=== PATIENT | male | born 1955 | race African-American/Black ===

== ENCOUNTER 2018-11-15 05:05 | Emergency (ER) | payer OTHER ==
[~2018-11-15] VITALS: Ht 188 cm; Wt 77.0 kg
[2018-11-15] MEDS ORDERED: ONDANSETRON HCL 4MG/2ML INJ IV STA (05:23)
[2018-11-15] MEDS ORDERED: MORPHINE SULFATE 4 MG/ML CPJ (NOT FOR IM USE) IV STA (05:23)
[2018-11-15] MEDS ORDERED: SODIUM CHLORIDE 0.9% 1,000 ML IV ONE (05:23)
[2018-11-15 05:37] LABS: BASOPHILS % 0.6 % (0.0-2.0); EOSINOPHILS % 0.8 % (0.0-5.0); HEMATOCRIT. 41.5 % (42.0-52.0); HEMOGLOBIN. 13.5 g/dL (14.0-18.0); LYMPHOCYTES % 21.6 % (20.0-50.0); MEAN CORPUSCULAR VOLUME 70.8 fL (80.0-94.0); MEAN PLATELET VOLUME 7.6 fl (7.4-10.4); MONOCYTES % 3.8 % (2.0-8.0); NEUTROPHILS % 73.2 % (40.0-76.0); PLATELET 218 x1000/uL (130-400); RED BLOOD CELL COUNT 5.86 mill/uL (4.7-6.1); RED CELL DISTRIBUTION WIDTH 16.6 % (11.6-14.6)
[2018-11-15 05:44] LABS: CHLORIDE 102 mEq/L (98-107); PROTHROMBIN TIME 10.7 sec (9.6-11.0)
[2018-11-15] MEDS ORDERED: KETOROLAC 15MG/ML VIAL IV ONE (06:30)
[2018-11-15 07:32] VITALS: BP 153/86
[2018-11-15 08:16] LABS: CLARITY URINE CLEAR (CLEAR); COLOR URINE YELLOW (YELLOW); KETONES URINE 1+ (NEGATIVE); LEUKOCYTE ESTERASE URINE NEGATIVE (NEGATIVE); NITRITE URINE NEGATIVE (NEGATIVE); OCCULT BLOOD URINE NEGATIVE (NEGATIVE); PH URINE 7.5 (4.5-8.0); PROTEIN URINE NEGATIVE (NEGATIVE); SPECIFIC GRAVITY URINE 1.016 (1.005-1.030); UROBILINOGEN URINE 0.2 E.U./dL (0.2-1.0)
== END 2018-11-15 07:33 | disposition home or self-care (01) ==
LOC: ER 05:05
DX: R10.32 Left lower quadrant pain (principal); I10 Essential (primary) hypertension; F17.210 Nicotine dependence, cigarettes, uncomplicated; Z71.6 Tobacco abuse counseling
CPT/HCPCS: 36415; 74176; 80053; 81003; 83690; 85025; 85610; 96374; 96375; 99284; 99406; J1885; J2270; J2405; J7030; Z7610

== ENCOUNTER 2019-06-17 08:16 | Emergency (ER) | payer OTHER ==
[~2019-06-17] VITALS: Ht 185.4 cm; Wt 85.0 kg
[2019-06-17] MEDS ORDERED: IPRATROPIUM/ALBUTEROL 0.5-3(2.5)MG/3ML NEB HHN ONE (08:30)
[2019-06-17 10:30] VITALS: BP 110/77
== END 2019-06-17 10:32 | disposition home or self-care (01) ==
LOC: ER 08:16
DX: J44.9 Chronic obstructive pulmonary disease, unspecified (principal); R51 Headache; M79.10 Myalgia, unspecified site; I10 Essential (primary) hypertension; F17.200 Nicotine dependence, unspecified, uncomplicated
CPT/HCPCS: 71045; 87804; 94640; 99284; J7620; Z7610

== ENCOUNTER 2024-03-15 13:33 | Emergency (ER) | payer MEDICARE, OTHER ==
[~2024-03-15] VITALS: Ht 172.7 cm; Wt 58.9 kg
[2024-03-15 13:47] VITALS: O2SAT 97
[2024-03-15 15:35] LABS: BASOPHILS % 0.8 % (0.0-2.0); EOSINOPHILS % 0.6 % (0.0-5.0); HEMATOCRIT. 31.4 % (42.0-52.0); HEMOGLOBIN. 10.5 g/dL (14.0-18.0); LYMPHOCYTES % 11.1 % (20.0-50.0); MEAN CORPUSCULAR HEMOGLOBIN 23.3 pg (28.0-32.0); MEAN CORPUSCULAR HGB CONC 33.4 g/dL (31.0-37.0); MEAN CORPUSCULAR VOLUME 69.9 fL (80.0-94.0); MONOCYTES % 5.3 % (2.0-8.0); NEUTROPHILS % 82.2 % (40.0-76.0); PLATELET 612 x1000/uL (130-400); RED BLOOD CELL COUNT 4.49 mill/uL (4.7-6.1); RED CELL DISTRIBUTION WIDTH 15.5 % (11.6-14.6); WHITE BLOOD COUNT 12.6 x1000/uL (4.5-11.0)
[2024-03-15 15:36] LABS: ADD RBC MORPHOLOGY YES; DIFFERENTIAL COMMENT 1
[2024-03-15 15:37] LABS: CHLORIDE 106 mEq/L (98-107); POTASSIUM 3.7 mEq/L (3.5-5.1); SODIUM 139 mEq/L (136-145)
[2024-03-15 15:38] LABS: CALCIUM 9.5 mg/dL (8.7-10.4); CARBON DIOXIDE 27 mEq/L (21-32)
[2024-03-15 15:43] LABS: GLUCOSE 108 mg/dL (70-105); UREA NITROGEN BLOOD 25 mg/dL (9-23)
[2024-03-15 15:44] LABS: TROPONIN I HIGH SENSITIVITY 7 ng/L (3.0-53)
[2024-03-15 15:57] LABS: MICROCYTOSIS 3+; PLATELET ESTIMATE INCREASED
[2024-03-15 15:58] LABS: HYPOCHROMASIA 1+
[2024-03-15 16:00] VITALS: BP 144/85; PULSE 90; RESP 19; TEMP 37.00296; O2SAT 98
[2024-03-15] MEDS ORDERED: DOCU-138 MT (16:47)
[2024-03-15] MEDS ORDERED: AZIT250T12 MT (16:47)
[2024-03-15] MEDS: SENNOSIDES/DOCUSATE SOD 8.6/50MG TABLET PO PRN (16:58)
[2024-03-15] MEDS: DOCUSATE SODIUM 100MG CAPSULE PO NR (16:58)
[2024-03-15] MEDS: AZITHROMYCIN 500 MG TABLET PO NR (16:58)
== END 2024-03-15 17:15 | disposition home or self-care (01) ==
LOC: ER 13:33 → EDBEDREQSVC 15:37 → EDBEDREQ 15:37 → ER 17:15
DX: R60.0 Localized edema (principal); J18.9 Pneumonia, unspecified organism; M54.50 Low back pain, unspecified; I10 Essential (primary) hypertension; F20.9 Schizophrenia, unspecified; K59.00 Constipation, unspecified
CPT/HCPCS: 36415; 71045; 74018; 80048; 83880; 84484; 85025; 93005; 99285

== ENCOUNTER 2025-01-14 14:33 | Emergency (ER) | payer MEDICARE, OTHER ==
[~2025-01-14] VITALS: Ht 175.3 cm; Wt 59.0 kg
[~2025-01-14 14:33] MED LIST: AZIT250T12 MT; DOCU-138 MT
[2025-01-14 14:35] VITALS: O2SAT 94
[2025-01-14 15:32] LABS: BASOPHILS % 0.3 % (0.0-2.0); EOSINOPHILS % 3.0 % (0.0-5.0); HEMATOCRIT. 36.8 % (42.0-52.0); HEMOGLOBIN. 11.7 g/dL (14.0-18.0); LYMPHOCYTES % 25.4 % (20.0-50.0); MEAN PLATELET VOLUME 8.5 fl (7.4-10.4); MONOCYTES % 7.1 % (2.0-8.0); NEUTROPHILS % 64.2 % (40.0-76.0); PLATELET 297 x1000/uL (130-400); RED BLOOD CELL COUNT 5.33 mill/uL (4.7-6.1); RED CELL DISTRIBUTION WIDTH 18.6 % (11.6-14.6)
[2025-01-14 15:40] LABS: ADD RBC MORPHOLOGY YES
[2025-01-14 15:50] LABS: CREATININE 0.8 mg/dL (0.6-1.3); ETHANOL BLOOD 20 mg/dL (<10); UREA NITROGEN BLOOD 11 mg/dL (9-23)
[2025-01-14 15:51] LABS: INR 1.0; TROPONIN I HIGH SENSITIVITY 9 ng/L (3.0-53)
[2025-01-14 16:13] LABS: PLATELET ESTIMATE NORMAL
[2025-01-14] MEDS ORDERED: POTASSIUM CHLORIDE 20MEQ TABLET SR PO ONE (16:45)
[2025-01-14 17:00] VITALS: BP 131/89; PULSE 85; RESP 16; O2SAT 96
[2025-01-14] MEDS ORDERED: ALBU90AE INH (17:31)
== END 2025-01-14 17:05 | disposition home or self-care (01) ==
LOC: ER 14:33
DX: F14.10 Cocaine abuse, uncomplicated (principal); J44.9 Chronic obstructive pulmonary disease, unspecified; F17.200 Nicotine dependence, unspecified, uncomplicated; I10 Essential (primary) hypertension; R06.02 Shortness of breath; F41.9 Anxiety disorder, unspecified; F20.9 Schizophrenia, unspecified
CPT/HCPCS: 36415; 71045; 80048; 80320; 83880; 84484; 85025; 93005; 99285; G0480

== ENCOUNTER 2025-01-14 17:19 | Emergency (ER) | payer MEDICARE, OTHER ==
[~2025-01-14] VITALS: Ht 180.3 cm; Wt 66.0 kg
[2025-01-14 17:21] VITALS: O2SAT 98
[2025-01-14 17:27] VITALS: BP 136/72; PULSE 90; RESP 20; TEMP 36.8; O2SAT 98
[2025-01-14] MEDS ORDERED: ALBU90AE INH (17:31)
== END 2025-01-14 17:41 | disposition home or self-care (01) ==
LOC: ER 17:19
DX: Z76.0 Encounter for issue of repeat prescription (principal); F17.200 Nicotine dependence, unspecified, uncomplicated; F14.10 Cocaine abuse, uncomplicated; I10 Essential (primary) hypertension; J44.9 Chronic obstructive pulmonary disease, unspecified; Z79.899 Other long term (current) drug therapy; Z86.59 Personal history of other mental and behavioral disorders
CPT/HCPCS: 99281